=== PATIENT | male | born 1970 | race African-American/Black ===

== ENCOUNTER 2017-03-10 12:18 | Observation (INO) | payer SELFPAY ==
--- NOTE | ~2017-03-10 | HP ---
History And Physical [place] [address] [facility] [place]. [address] NAME: DESTINEE RANDOLPH : 70 STATUS : ADM Courtney PAT#: [id number] AGE: 46 ADM/REG DATE : 03/10/17 MR#: [id number] REPORT SERV DATE: 03/10/17 DICTATED BY: JOANNA VILLASENOR DATE: 03/10/17 REPORT STATUS : Draft TRANSCRIBED BY: MODMaya DATE: 03/10/17 DATE OF ADMISSION: 03/10/2017 PRIMARY CARE PROVIDER: None. CHIEF COMPLAINT: Chest pain. HISTORY OF PRESENT ILLNESS: This is a pleasant 46-year-old morbidly obese black gentleman with no known history of CAD, states that over the past four days, he has experienced episodic chest pain that has worsened over the past two days. 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 He describes the chest pain as a "burning sensation" with palpitations that radiates towards his left shoulder with some degree of facial numbness. He describes associated shortness of breath and diaphoresis. He denies any nausea, dizziness, or belching. At its most intense, he rates his chest pain an 8/10. At the time of interview in the ER, he is pain-free. He states the episodes last "a couple of minutes." Again, he feels his symptoms are worse with exertion such as walking any short distance. The patient denies any personal history of myocardial infarction, stroke, DVT, or pulmonary embolus. The patient denies any recent fever or chills, describes occasional palpitations. No syncopal episodes. Denies PND or orthopnea. PAST MEDICAL HISTORY: 1. AODM. 2. Asthma. 3. BMI greater than 40. 4. Unknown cholesterol. PAST SURGICAL HISTORY: 1. Right testicle removed for torsion. 2. Cyst removed from foot and buttocks. 3. Lipoma removed. SOCIAL HISTORY: He is single with three children. 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 He states that he walks daily, approximately 10,000 steps per day. Quit smoking four years ago. Prior to that, was one pack per day for 20 years. Occasionally consumes alcohol. Occasionally smokes marijuana, most recently one week ago. FAMILY HISTORY: No embolic events reported in first-degree relatives. REVIEW OF SYSTEMS: A 14-point review of systems performed, significant for HPI. No other contributory diagnoses identified. ALLERGIES: DYE, RASH; LATEX, RASH. History And Physical [address] [address] NAME: DESTINEE RANDOLPH : 70 STATUS : ADM Courtney PAT#: [id number] AGE: 46 ADM/REG DATE : 03/10/17 MR#: [id number] REPORT SERV DATE: 03/10/17 DICTATED BY: JOANNA VILLASENOR DATE: 03/10/17 REPORT STATUS : Draft TRANSCRIBED BY: CATHLEEN DATE: 03/10/17 HOME MEDICATIONS: Unknown inhaler p.r.n., metformin 1000 mg twice daily, and glyburide 5 mg daily. PHYSICAL EXAMINATION: VITAL SIGNS: Blood pressure 140/70, pulse 76, respirations 16, temperature 98.6, O2 saturation 99% on room air. Height 5 feet 4 inches. Weight 242 pounds (stated BMI calculated at 41). GENERAL: Multiple tattoos. HEENT: Pupils 2 mm, sclera nonicteric. Nares patent. Moist mucous membranes. No xanthelasma. NECK: Trachea midline, no thyromegaly. No JVD. No bruits. LYMPH: No cervical lymphadenopathy. No supraclavicular lymphadenopathy. RESPIRATORY: Unlabored respirations. Breath sounds clear bilaterally to posterior auscultation. No wheezes or rhonchi. CARDIOVASCULAR: Regular rate. No murmur, rub or gallop appreciated. EXTREMITIES: Without edema. Pulses 2+ bilaterally. ABDOMEN: Obese. SKIN: Warm, dry extremities. No pallor, or cyanosis. PSYCHIATRIC: Appropriate affect. Alert, oriented x3. LABORATORY DATA: Troponin less than 0.02; second, pending. Potassium 4.6; BUN 18; creatinine 1.06; glucose 306; magnesium 2.1. WBC 5.4, hemoglobin 15.3, hematocrit 44.5, and platelet count 213,000. UA: Glucose greater than 500 and negative ketones. EKG: Sinus rhythm, RBBB. ASSESSMENT AND PLAN: 1. Substernal chest pain. The patient will be observed in the CPOU overnight to rule out myocardial infarction per protocol. If second troponin negative, held n.p.o. for cardiac cath in the morning. The patient will be discharged home if negative study. If anything suggestive of ischemia, Cardiology referral will be initiated. Otherwise, the patient will be asked to follow up at [facility] in one to two weeks with all studies being sent to that office. 2. Adult-onset diabetes mellitus. Hold metformin, level 1 sliding scale correction. 3. Unknown cholesterol. We will check a fasting lipid panel. 4. BMI greater than 40. ADA diet. Adherence in exercise recommended. JESSIKA/CATHLEEN Joanna Villasenor, [place], INSTITUTIONAL CUSTODIAN-BC / [id number] CC: History And Physical [address] [address] NAME: DESTINEE RANDOLPH : 70 STATUS : ADM Courtney PAT#: [id number] AGE: 46 ADM/REG DATE : 03/10/17 MR#: [id number] REPORT SERV DATE: 03/10/17 DICTATED BY: JOANNA VILLASENOR DATE: 03/10/17 REPORT STATUS : Draft TRANSCRIBED BY: MODL DATE: 03/10/17 Joanna Villasenor, MSN, INSTITUTIONAL CUSTODIAN-BC
--- NOTE | ~2017-03-10 | CN ---
Consultation Report [facility] [address] [place]. [address] NAME: DESTINEE RANDOLPH : 70 STATUS : ADM Courtney PAT#: [id number] AGE: 46 ADM/REG DATE : 03/10/17 MR#: [id number] REPORT SERV DATE: 03/11/17 DICTATED BY: DEEPAK TOM DATE: 03/11/17 REPORT STATUS : Draft TRANSCRIBED BY: MODL DATE: 03/11/17 NEW CONSULT DATE OF CONSULTATION: The patient has no primary care physician. HISTORY OF PRESENT ILLNESS: This is a 46-year-old male with a history of morbid obesity and diabetes and is a former smoker, who has been admitted to chest pain observation unit for chest pain with palpitations and shortness of breath and diaphoresis with exertion. So far initial workup has been negative with troponins negative x2 and EKG showing no ischemic changes. The patient is scheduled for myocardial perfusion imaging stress test this morning. We have been consulted for diabetes management. The patient has been diabetic since 2002. He is on two oral diabetes medications, glyburide and metformin. However, he has no primary care and his hemoglobin A1c is 14.4. He states that he does have glucometer and strips and lancets and he does have prescriptions for metformin and glyburide and he is actively taking them. The patient has had some chest pain overnight and this morning, mild, but none currently. The patient denies any shortness of breath. No nausea, vomiting. No abdominal pain. Has been tolerating diet here at hospital. PAST MEDICAL HISTORY: 1. Diabetes type 2. 2. Asthma. 3. Morbid obesity. 4. Hypercholesteremia. PAST SURGICAL HISTORY: 1. Right gonadectomy secondary to testicular torsion. 2. Cystectomy on foot and buttocks. 3. Lipoma removal. 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 Former smoker, quit four years ago. Occasional alcohol and marijuana use. FAMILY HISTORY: Diabetes. MEDICATIONS: Diabetic home meds include glyburide 5 mg p.o. daily and metformin a 1000 mg p.o. b.i.d. ALLERGIES: RASH TO DYE AND LATEX. PHYSICAL EXAMINATION: VITAL SIGNS: Blood pressure 154/86, heart rate 72, respirations 12, temperature 97.7, O2 saturation 95% on room air. GENERAL: On exam, the patient is alert and oriented x3. No focal deficits. Generally Consultation Report [facility] [address] [place]. [address] NAME: DESTINEE RANDOLPH : 70 STATUS : ADM Courtney PAT#: [id number] AGE: 46 ADM/REG DATE : 03/10/17 MR#: [id number] REPORT SERV DATE: 03/11/17 DICTATED BY: DEEPAK TOM DATE: 03/11/17 REPORT STATUS : Draft TRANSCRIBED BY: MODMaya DATE: 03/11/17 cooperative. No apparent distress, awake. NECK: No JVD. LUNGS: Clear to auscultation bilaterally with normal respiratory effort. CARDIOVASCULAR: No murmurs auscultated. Regular rhythm. ABDOMEN: Soft, nontender. Active bowel sounds. EXTREMITIES: No edema. Normal distal pulse. ASSESSMENT AND PLAN: 1. Diabetes type 2 with hemoglobin A1c of 14.4. Blood sugars here at the hospital been 306, 336, and 302 on just sliding scale insulin. Metformin being held for procedure. I will go ahead and start the patient on Novolin 70/30 of 10 units b.i.d. Continue sliding scale insulin. We will start first dose of 70/30 later this evening if the patient ends up staying if he has abnormal stress test and I will leave him a prescription for ReliOn brand 70/30 insulin which is available at [facility] for about 25 dollars a bottle. A general machine operator has already been consulted and will see him today. I think it is fine to continue his metformin at home, but will go ahead and discontinue his glyburide since were initially initiating insulin for him at home. 2. Hyperlipidemia. The patient has elevated triglycerides 41 and total cholesterol 460. Spoke with Cardiology provider, Joanna Villasenor, nurse practitioner. She will be giving him a prescription for cholesterol medication at discharge. 3. Morbid obesity with BMI greater than 40. Did discuss weight loss and importance of with the patient. 4. Chest pain. Initial cardiac workup negative with troponins negative x2 and EKG showed no ischemic changes. The patient's MPI stress test scheduled for this morning. We will need to establish PCP. Joanna Villasenor said she is going to set up an appointment with Dr. Nolan Moser at [facility]. The patient does have diabetic supplies. No prescriptions needed for that. We will leave him with a prescription for the insulin. TDR/MODL Deepak Tom APN / [id number] CC: Joanna Villasenor, [place], TRANSPORT MANAGER-BC
[2017-03-10 11:34] LABS: BASOPHILS 0.6 %; BASOPHILS ABSOLUTE 0.03 10/3/uL (0.0-0.16); EOSINOPHILS ABSOLUTE 0.11 10/3/uL (0.0-0.53); HEMATOCRIT 44.5 % (40.0-51.0); HEMOGLOBIN 15.3 g/dL (13.6-17.8); IMMATURE GRANULOCYTES 0.4 %; IMMATURE GRANULOCYTES ABSOLUTE 0.02 10/3/uL (0.0-0.11); LYMPHOCYTES 47.6 %; LYMPHOCYTES ABSOLUTE 2.59 10/3/uL (0.67-4.30); MEAN CORPUS HGB CONC 34.4 g/dL (32.0-36.0); MEAN CORPUSCULAR HEMOGLOB 27.1 pg (26.0-34.0); MEAN CORPUSCULAR VOLUME 78.9 fL (80-100); MEAN PLATELET VOLUME 10.4 fL (9.2-13.0); MONOCYTES 8.5 %; MONOCYTES ABSOLUTE 0.46 10/3/uL (0.21-1.20); NEUTROPHILS 40.9 %; NEUTROPHILS ABSOLUTE 2.23 10/3/uL (2.02-8.40); PLATELET COUNT 213 10/3/uL (150-400); RBC DISTRIBUTION WIDTH 14.1 % (12.0-16.0); RED CELL COUNT 5.64 10/6/uL (4.7-6.1); WHITE BLOOD CELLS 5.4 10/3/uL (4.5-10.5)
[2017-03-10 11:36] LABS: MANUAL DIFF NO %
[2017-03-10 11:44] LABS: INTERNATIONAL NORMAL RATI 0.9 UNITS (-); PARTIAL THROMBO TIME 30.8 SEC (22.5-37.2); PROTIME (NOT ORD) 11.6 SEC (12.0-14.5)
[2017-03-10 11:50] LABS: BUN (BLOOD UREA NITROGEN) 18 MG/DL (6-23); CHEST PAIN PROFILE TAT 0 Hrs 20 Mins; CHLORIDE, SERUM 105 MMOL/L (96-112); CO2 (CARBON DIOXIDE) 18 MMOL/L (24-34); CREATININE 1.06 MG/DL (0.70-1.30); GFR AFRICAN AMERICAN 97 ML/MIN (>=60); GFR NON AFRICAN AMERICAN 84 ML/MIN (>=60); GLUCOSE, SERUM 306 MG/DL (60-99); SODIUM, SERUM 136 MMOL/L (135-148); TROPONIN I <0.02 NG/ML (<0.05)
[2017-03-10 11:52] LABS: ALBUMIN 3.1 G/DL (3.5-5.0); ALKALINE PHOSPHATASE 218 U/L (45-117); SGPT(ALT) 36 U/L (5-65); TOTAL BILIRUBIN 0.3 MG/DL (0-1.2); TOTAL PROTEIN 7.4 G/DL (6.0-8.5)
[2017-03-10 11:53] LABS: DIRECT BILIRUBIN < 0.1 MG/DL (0.0-0.4); INDIRECT BILIRUBIN(NOT ORDER) 0.2 MG/DL (0.1-0.9); SGOT(AST) 33 U/L (5-40)
[2017-03-10 11:54] LABS: ASCORBIC ACID (UR NOT ORDER) NEG (NEG); BILIRUBIN, URINE NEGATIVE (NEG); ER URINALYSIS TAT 0 Hrs 05 Mins; KETONE, URINE NEGATIVE (NEG); LEUKOCYTE ESTERASE(NOT OR NEG (NEG); NITRITE (URINE) NEG (NEG); WBC (NOT ORDERED) (RFLEX) 1 (0-5)
[2017-03-10 11:55] LABS: POTASSIUM, SERUM 4.6 MMOL/L (3.5-5.3)
[2017-03-10] MEDS ORDERED: UNKNOWN INHALER INH (14:02)
[2017-03-10] MEDS ORDERED: DIABETA5 PO (14:03)
[2017-03-10] MEDS ORDERED: GLUCOPHAGE1000 MG PO (14:03)
[2017-03-11] MEDS ORDERED: LIPITOR40 (15:21)
[2017-03-11] MEDS ORDERED: INSNOV7030 SC (15:21)
[2017-03-11] MEDS ORDERED: PRIN5 PO (15:21)
== END 2017-03-11 16:27 | disposition home or self-care (01) ==
LOC: ER 12:18 → CDU1 14:16 → CDU2 14:24
PROVIDERS: Clinical Nurse Specialist; Emergency Medicine
DX: R07.2 Precordial pain (principal); E11.8 Type 2 diabetes mellitus with unspecified complications; E66.01 Morbid (severe) obesity due to excess calories; Z68.41 Body mass index [BMI] 40.0-44.9, adult; I10 Essential (primary) hypertension; E78.5 Hyperlipidemia, unspecified; Z91.040 Latex allergy status; Z87.891 Personal history of nicotine dependence; Z90.49 Acquired absence of other specified parts of digestive tract; J45.909 Unspecified asthma, uncomplicated; Z79.899 Other long term (current) drug therapy; Z79.82 Long term (current) use of aspirin
CPT/HCPCS: 71010; 78492; 80048; 80061; 80076; 81001; 82962; 83036; 83735; 84484; 85025; 85610; 85730; 93005; 93017; 96374; 99285; A9270-GY; A9555; G0378; J2785